=== PATIENT | male | born 1995 | race Caucasian/White ===

== ENCOUNTER 2021-07-20 18:56 | Emergency (ER) | payer OTHER, MEDICAID, SELFPAY ==
[2021-07-20 19:00] VITALS: BP 145/79; PULSE 120; RESP 18; TEMP 36.6; O2SAT 98; BMI 25.5
[2021-07-20] MEDS: TET,DIPH,PERTUSS(ACELL),VAC/PF 0.5 ML SYRINGE IM (19:41)
[2021-07-20] MEDS: LIDO 1%/SOD BICARB 8.4% (10ML) 10 ML SYRINGE INJ (19:50)
[2021-07-20] MEDS: ACETAMINOPHEN 325 MG TABLET 975 MG PO (19:52)
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
== END 2021-07-20 20:25 | disposition home or self-care (01) ==
PROVIDERS: Emergency Provider Nurse Practitioner Critical Care Medicine
DX: S01.81XA Laceration without foreign body of other part of head, initial encounter (principal); V18.0XXA Pedal cycle driver injured in noncollision transport accident in nontraffic accident, initial encounter; Y93.55 Activity, bike riding; Z23 Encounter for immunization
CPT/HCPCS: 12011; 90471; 99283; 90715